=== PATIENT | male | born 1955 | race Asian ===

== ENCOUNTER 2020-08-04 13:11 | Observation (INO) | payer OTHER ==
[2020-08-04 13:41] VITALS: BMI 30.7
[2020-08-04] MEDS ORDERED: ACETAMINOPHEN 1000 MG/100 ML VIAL (NON FORMULARY) IVPB ONE (14:41)
[2020-08-04 14:50] LABS: BASO % 0.6 % (0-2.0); EOS % 7.4 % (0-4.5); HEMATOCRIT 31.7 % (35.4-49); HEMOGLOBIN 11.1 GM/dL (11.7-16.9); LYMPH % 19.7 % (8-40); MCH 31.5 pg (25.7-33.7); MEAN CELL VOLUME 90.2 fl (80-96); MEAN PLT VOLUME 9.2 fl (7.5-11.1); NEUT % 64.3 % (42.8-82.8); PLATELET COUNT 155 K/MM3 (134-434); RBC 3.51 M/mm3 (4.00-5.60); RDW 13.7 % (11.9-15.9); WHITE BLOOD COUNT 2.7 K/mm3 (4.0-10.0)
[2020-08-04 14:59] LABS: CHLORIDE 104 mmol/L (98-107); POTASSIUM 5.1 mmol/L (3.5-5.1); SODIUM 134 mmol/L (136-145)
[2020-08-04 15:02] LABS: CALCIUM 8.6 mg/dL (8.5-10.1)
[2020-08-04 15:03] LABS: ALBUMIN 3.8 g/dl (3.4-5.0); ANION GAP 4 MMOL/L (8-16); BLOOD UREA NITROGEN 28.8 mg/dL (7-18); CO2 26 mmol/L (21-32); GLUCOSE,RANDOM 127 mg/dL (74-106)
[2020-08-04 15:06] LABS: CREATININE 1.8 mg/dL (0.55-1.3); SGOT/AST 75 U/L (15-37); SGPT/ALT 74 U/L (13-61)
[2020-08-04 15:07] LABS: BILIRUBIN,TOTAL 0.7 mg/dL (0.2-1)
[2020-08-04 15:09] LABS: ALK PHOS 64 U/L (45-117)
[2020-08-04] MEDS ORDERED: ACETAMINOPHEN 325 MG TABLET (FP) PO ONE (15:10)
[2020-08-04] MEDS ORDERED: ACETAMINOPHEN 325 MG TABLET (FP) ONE (15:26)
[2020-08-04 15:36] LABS: ANISOCYTOSIS 0; MACROCYTOSIS 0; PLATELET ESTIMATE NORMAL
[2020-08-04] MEDS ORDERED: LEVOTHYROXINE NA 50 MCG TABLET (FP) PO ONE (15:40)
[2020-08-04] MEDS ORDERED: ASPIRIN 81 MG CHEWABLE TABLETS ONE (15:52)
[2020-08-04] MEDS ORDERED: ZINC SULFATE 220 MG CAPSULE (FP) ONE (15:52)
[2020-08-04] MEDS ORDERED: LEVOTHYROXINE NA 25 MCG TABLET (FP) ONE (15:52)
[2020-08-04] MEDS ORDERED: HEPARIN NA (PORCINE) 5,000 UNITS/ML 1ML VIAL ONE ×2 (15:53→22:20)
[2020-08-04] MEDS: HEPARIN NA (PORCINE) 5,000 UNITS/ML 1ML VIAL SQ SCH ×2 (15:59→22:27)
[2020-08-04] MEDS: ASPIRIN COATED 81 MG TABLET.EC PO SCH (15:59)
[2020-08-04] MEDS: ZINC SULFATE 220 MG CAPSULE (FP) PO SCH (15:59)
[2020-08-04 16:08] LABS: PH,URINE 5.5 (5.0-8.0); URINE APPEARANCE CLEAR; URINE BILIRUBIN NEGATIVE (NEGATIVE); URINE COLOR YELLOW; URINE GLUCOSE (UA) NEGATIVE (NEGATIVE); URINE KETONE NEGATIVE (NEGATIVE); URINE LEUK ESTERASE NEGATIVE (NEGATIVE); URINE NITRITE NEGATIVE (NEGATIVE); URINE PROTEIN NEGATIVE (NEGATIVE); URINE UROBILINOGEN 0.2 mg/dL (0.2-1.0)
[2020-08-04 16:29] LABS: CHOLESTEROL 94 mg/dL (50-200); LDL CHOLESTEROL (ONLY SJRH) 50 mg/dL (5-100); TRIGLYCERIDES 159 mg/dL (0-150)
[2020-08-04 16:30] LABS: HDL CHOLESTEROL 30 mg/dL (40-60)
[2020-08-04] MEDS: INSULIN SLIDING SCALE (NOVOLOG) 1 VIAL SQ SCH ×2 (17:02→22:27)
[2020-08-04] MEDS ORDERED: ASCORBIC ACID 500 MG TABLET (FP) ONE (22:20)
[2020-08-04] MEDS: ASCORBIC ACID 500 MG TABLET (FP) PO SCH (22:28)
[2020-08-05] MEDS ORDERED: HEPARIN NA (PORCINE) 5,000 UNITS/ML 1ML VIAL ONE ×2 (06:22→14:20)
[2020-08-05 06:28] VITALS: TEMP 98.5
[2020-08-05] MEDS: HEPARIN NA (PORCINE) 5,000 UNITS/ML 1ML VIAL SQ SCH (06:33)
[2020-08-05] MEDS ORDERED: LEVOTHYROXINE NA 50 MCG TABLET (FP) PO SCH (07:00)
[2020-08-05] MEDS: INSULIN SLIDING SCALE (NOVOLOG) 1 VIAL SQ SCH ×2 (08:05→11:50)
[2020-08-05] MEDS ORDERED: LEVOTHYROXINE NA 25 MCG TABLET (FP) ONE (08:16)
[2020-08-05 08:40] VITALS: BP 149/76
[2020-08-05 09:32] LABS: BASO % 0.9 % (0-2.0); EOS % 9.7 % (0-4.5); HEMATOCRIT 30.5 % (35.4-49); HEMOGLOBIN 10.8 GM/dL (11.7-16.9); LYMPH % 30.6 % (8-40); MCH 31.7 pg (25.7-33.7); MCHC 35.3 g/dl (32.0-35.9); MEAN CELL VOLUME 89.7 fl (80-96); MONO % 11.2 % (3.8-10.2); NEUT % 47.6 % (42.8-82.8); PLATELET COUNT 96 K/MM3 (134-434); RDW 13.4 % (11.9-15.9)
[2020-08-05 09:48] VITALS: PULSE 65
[2020-08-05 09:59] LABS: POTASSIUM 4.1 mmol/L (3.5-5.1)
[2020-08-05] MEDS ORDERED: metoPROLOL SUCCINATE 25 MG TAB.SR.24H (FP) PO SCH (10:00)
[2020-08-05] MEDS ORDERED: ALLOPURINOL 100 MG TABLET (FP) PO SCH (10:00)
[2020-08-05] MEDS ORDERED: amLODIPine BESYLATE 10 MG TABLET (FP) PO SCH (10:00)
[2020-08-05] MEDS ORDERED: ASCORBIC ACID 500 MG TABLET (FP) ONE (10:09)
[2020-08-05] MEDS ORDERED: amLODIPine BESYLATE 5 MG TABLET (FP) ONE (10:09)
[2020-08-05] MEDS ORDERED: ASPIRIN COATED 81 MG TABLET.EC ONE (10:09)
[2020-08-05] MEDS ORDERED: ZINC SULFATE 220 MG CAPSULE (FP) ONE (10:10)
[2020-08-05] MEDS ORDERED: metoPROLOL SUCCINATE 25 MG TAB.SR.24H (FP) ONE (10:10)
[2020-08-05 10:14] LABS: CALCIUM 8.8 mg/dL (8.5-10.1)
[2020-08-05 10:18] LABS: CREATININE 1.5 mg/dL (0.55-1.3); PHOSPHOROUS 3.3 mg/dL (2.5-4.9)
[2020-08-05 10:20] LABS: BILIRUBIN,TOTAL 0.9 mg/dL (0.2-1); TOT PROT 6.2 g/dl (6.4-8.2)
[2020-08-05 10:21] LABS: ALBUMIN 3.5 g/dl (3.4-5.0); MAGNESIUM 2.1 mg/dL (1.8-2.4)
[2020-08-05 10:23] LABS: BLOOD UREA NITROGEN 26.8 mg/dL (7-18)
[2020-08-05] MEDS: ASCORBIC ACID 500 MG TABLET (FP) PO SCH (10:29)
[2020-08-05] MEDS: ZINC SULFATE 220 MG CAPSULE (FP) PO SCH (10:29)
[2020-08-05] MEDS: ASPIRIN COATED 81 MG TABLET.EC PO SCH (10:29)
[2020-08-05] MEDS ORDERED: ATORVASTATIN CA 20 MG TABLET (FP) PO SCH (22:00)
== END 2020-08-05 14:00 | disposition home or self-care (01) ==
LOC: JER 13:11 → JERBED 15:25
PROVIDERS: ATTEND Student in an Organized Health Care Education/Training Program
PROC: 3E023GC Introduction of Other Therapeutic Substance into Muscle, Percutaneous Approach (ICD-10-PCS; principal; 2020-08-04)
DX: E11.22 Type 2 diabetes mellitus with diabetic chronic kidney disease (principal); I13.10 Hypertensive heart and chronic kidney disease without heart failure, with stage 1 through stage 4 chronic kidney disease, or unspecified chronic kidney disease; U07.1 COVID-19; N18.9 Chronic kidney disease, unspecified; Z95.5 Presence of coronary angioplasty implant and graft; C85.90 Non-Hodgkin lymphoma, unspecified, unspecified site; E66.9 Obesity, unspecified; Z68.30 Body mass index [BMI] 30.0-30.9, adult; E78.5 Hyperlipidemia, unspecified; I25.2 Old myocardial infarction; Z92.21 Personal history of antineoplastic chemotherapy
CPT/HCPCS: 36415; 71045-TC-FY; 76775-TC; 80053; 80061; 81003; 82436; 82550; 82553; 82565; 82962; 83036; 83721; 83735; 84100; 84133; 84156; 84300; 84443; 84484; 85025; 86769; 93005; 93010; 96372; 99285-25; C9803; G0378; J1644; U0003